=== PATIENT | female | born 1940 | race Caucasian/White ===

== ENCOUNTER 2017-07-22 18:41 | Emergency (ER) | payer MEDICARE, BC ==
--- NOTE | 2017-07-22 19:05 | EDM.PDOC ---
ED HPI GENERAL MEDICAL PROBLEM - General Chief Complaint: Upper Extremity Injury/Pain Stated Complaint: POSS SHOULDER INJURY Time Seen by Provider: 07/22/17 18:55 Source of Information: Reports: Patient History Limitations: Reports: No Limitations - History of Present Illness INITIAL COMMENTS - FREE TEXT/NARRATIVE: 76-year-old female presents the ED with severe constant pain radiating in her right neck rating down her right arm to her fingers. She reports the right upper extremity has numbness tingling biting and burning pain sensation. Shortness reports the arm seems to be weak and doesn't obey her commands. Of note she is right-hand dominant. Pain started on Friday 4 days ago and is gradually intensified. Patient has had previous rotator cuff surgery on her right shoulder with minimal improvement in symptoms according to the patient. She is sleeping in the easy chair due to the severity of the pain. Certain movements of her head and neck make the pain worse. Pain is bad enough to disrupt her sleep. She can no longer sleep on her right side she is sleeping in the easy chair. No recent falls or injuries to her head or neck. She is scheduled for MRI of her shoulder and neck she believes on Friday this week. Onset: Gradual Onset Date: 07/19/17 Duration: Day(s):, Constant, Getting Worse Location: Reports: Neck, Upper Extremity, Right Quality: Reports: Ache, Burning, Other (Paresthesias numbness tingling) Severity: Severe (and associated weakness due to pain) Improves with: Reports: None Worsens with: Reports: None Context: Denies: Activity, Exercise, Lifting, Sick Contact, Trauma, Other Associated Symptoms: Reports: Other (Cervical neck pain right shoulder pain). 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 Right Arm Pain Score (Numeric/FACES): 10 - Related Data Allergies Allergy/AdvReac Type Severity Reaction Status Date / Time No Known Allergies Allergy Verified 07/22/17 18:54 Home Meds: Home Meds Aspirin 81 mg PO DAILY 07/22/17 [History] Clopidogrel [Plavix] 75 mg PO DAILY 07/22/17 [History] Doxazosin [Doxazosin Mesylate] 2 mg PO DAILY 07/22/17 [History] Furosemide [Lasix] 40 mg PO DAILY 07/22/17 [History] Gabapentin [Neurontin] 200 mg PO BEDTIME 07/22/17 [History] Spironolactone [Aldactone] 25 mg PO DAILY 07/22/17 [History] atorvaSTATin [Lipitor] 40 mg PO BEDTIME 07/22/17 [History] metFORMIN HCl [Metformin HCl] 500 mg PO BID 07/22/17 [History] oxyCODONE HCl/Acetaminophen [Percocet 5-325 mg Tablet] 1 - 2 each PO Q4H PRN # 20 tablet 07/22/17 [Rx] predniSONE [Deltasone] 20 mg PO ASDIRECTED #15 tablet 07/22/17 [Rx] Past Medical History Cardiovascular History: Reports: Hypertension, Stents (On Plavix at this time) Genitourinary History: Reports: Diabetic Nephropathy Musculoskeletal History: Reports: Arthritis (Previous rotator cuff repair), Osteoarthritis, Other (See Below) Endocrine/Metabolic History: Reports: Diabetes, Type II (Controlled with diet, oral medications and insulin usually 10 units of regular insulin before each meal and 20 units of Lantus daily.), Obesity/BMI 30+ Social & Family History - Living Situation & Occupation Living situation: Reports: Occupation: Retired Review of Systems - Review of Systems Review Of Systems: See Below Constitutional: Reports: Weakness Eyes: Reports: No Symptoms (Right upper extremity) Ears: Reports: No Symptoms Nose: Reports: No Symptoms Mouth/Throat: Reports: No Symptoms Respiratory: Reports: No Symptoms Cardiovascular: Reports: No Symptoms GI/Abdominal: Reports: Decreased Appetite Genitourinary: Reports: Incontinence Musculoskeletal: Reports: Neck Pain, Shoulder Pain (He is hips and neck. Bilateral shoulder pain previous right rotator cuff repair surgery.), Back Pain (Urge and stress components. Urinary frequency.), Joint Pain Skin: Reports: Bruising (Bruises easily as she is on Plavix) Neurological: Reports: No Symptoms Psychiatric: Reports: No Symptoms ED EXAM, GENERAL - Physical Exam Exam: See Below Exam Limited By: No Limitations General Appearance: Alert, WD/WN, Mild Distress Eye Exam: Bilateral Eye: Normal Inspection Head: Atraumatic, Normocephalic Neck: Other (She has bilateral marked paraspinal muscle spasm. There is spasm throughout the trapezius muscles bilaterally as well. Traction is full but she has loss of 10 of extension and this makes the pain in her right arm worse. Axial traction did cause increased pain radiating to her right upper extremity particular her neck and along the distribution of the long thoracic nerve. This is on the right side.) Respiratory/Chest: No Respiratory Distress, Decreased Breath Sounds (Breath sounds are diminished in both lower lung isaacs lower 20%.) Cardiovascular: Normal Peripheral Pulses, Regular Rate, Rhythm, No Gallop, No Murmur, No Rub Peripheral Pulses: 1+: Posterior Tibial (L), Posterior Tibial (R), Dorsalis Pedis (L), Dorsalis Pedis (R) Back Exam: Normal Inspection, Full Range of Motion. No: CVA Tenderness (L), CVA Tenderness (R) Extremities: Other (Attempts to examine her right upper extremity were limited. She has very limited ability to forward flex or to abduct the shoulder due to weakness and pain. There is seems to be pain in the distribution of the deltoid tendon insertion site. Biceps tendon insertion site seemed to be okay. She could not resist abduction of the right arm when it was abducted at 45. This does suggest that she has underlying rotator cuff disease.) Neurological: Oriented, CN II-XII Intact, Normal Cognition, Normal Gait, Other ( She had no reflexes in the triceps biceps or brachioradialis in either extremity.) Psychiatric: Normal Mood Skin Exam: Warm, Dry, Intact, Normal Color, No Rash Course - Vital Signs Last Recorded V/S: Last Vital Signs Temp 36.7 C 07/22/17 18:48 Pulse 71 07/22/17 18:48 Resp 12 07/22/17 18:48 BP 204/73 H 07/22/17 18:48 Pulse Ox 99 07/22/17 18:48 - Radiology Interpretation Free Text/Narrative:: 76-year-old female presents the ED with cervical neck pain radiating to the right shoulder. She's had previous right rotator cuff surgery. Examination of the right approximate extremity difficult as she is very limited range of motion postoperatively. Clinically however extension of her neck exacerbates the pain suggesting a discogenic etiology to her right upper extremity pain. Axial traction produced increased pain in the right trapezius muscle and lung thoracic nerve distribution. She is very limited range of motion of her cervical spine with bilateral marked paraspinal muscle spasm. Because of her diabetes is limits our ability to treat her with anti-inflammatories. She's also on Plavix. Therefore she will be given prednisone 20 mg in the morning and bedtime for 5 days and then once in the morning only for another 5 days which will increase her blood sugars. She was advised of this and may need to increase her NovoLog with meals and perhaps even her Lantus insulin while on this medication. Percocet tabs 5/3 I believe clinically she has evidence of cervical nerve root irritation from a bad disc or degenerative arthritis. 25 milligrams one or 2 every 4-6 hours as needed for pain relief [address] Hebert had booked her for MRI I suspect of both her cervical spine and her right shoulder on Friday this week. Departure - Departure Time of Disposition: 19:07 Disposition: Home, Self-Care 01 Condition: Fair Clinical Impression: Cervical radiculopathy at C6 - Discharge Information Prescriptions: oxyCODONE HCl/Acetaminophen [Percocet 5-325 mg Tablet] 1 - 2 each PO Q4H PRN # 20 tablet PRN Reason: pain relief. predniSONE [Deltasone] 20 mg PO ASDIRECTED #15 tablet Instructions: Cervical Radiculopathy Referrals: Telma Lara MD [Primary Care Provider] - Forms: ED Department Discharge, ED Return to Work/School Form Additional Instructions: Evaluation the emergency room today in regards to cervical neck pain with 3 or referred pain into her right shoulder down her right arm. This is causing numbness tingling and weakness of the right upper extremity. Examination is difficult because of limited ability to abduct and forward flex the right shoulder due to previous rotator cuff surgery. However pain appears to be originating in the neck and likely represents a herniated disc compressing a nerve at C6- C7 level. Treatment today is pain. Deltasone 20 mg with breakfast and supper for the next 5 days and then once in the morning only for another 5 days again to try and reduce inflammation and pain. This medication will cause her blood sugars to elevate while you were on the medication you may have to take more NovoLog medication with meals while on it. He will return back to where was about 2 days after the medication is discontinued. The medicine is Percocet 5/3/25 milligram tablets one or 2 every 4-6 hours needed for pain relief. Suggest also using MiraLAX powder 17 g once daily to prevent constipation secondary to pain medication usage. Further investigations are warranted by imaging with MRI of your neck and her right shoulder to sort out exactly where this pain is coming from. Follow-up with her personal care physician after MRI suffering completed
== END 2017-07-22 19:27 | disposition home or self-care (01) ==
LOC: JD.ED 18:41
DX: M54.12 Radiculopathy, cervical region (principal); I10 Essential (primary) hypertension; E11.21 Type 2 diabetes mellitus with diabetic nephropathy; Z79.82 Long term (current) use of aspirin; Z79.899 Other long term (current) drug therapy; Z79.4 Long term (current) use of insulin; Z79.01 Long term (current) use of anticoagulants
CPT/HCPCS: 99283

== ENCOUNTER 2017-07-31 14:41 | Emergency (ER) | payer MEDICARE, BC ==
--- NOTE | 2017-07-31 15:39 | EDM.PDOC ---
ED HPI GENERAL MEDICAL PROBLEM - General Chief Complaint: Neurological Problem Stated Complaint: SENT BY DR. STEINER Time Seen by Provider: 07/31/17 15:07 Source of Information: Reports: Patient History Limitations: Reports: No Limitations - History of Present Illness INITIAL COMMENTS - FREE TEXT/NARRATIVE: Patient states she contacted her provider's office with instructions to come to the ED with concerns that she may be having a stroke. Patient is questioning why. She states the pain started 22 July after lifting heavy items while working. She was seen in the ED diagnosed with cervical radiculopathy and treated with steroids and also pain medications. She states the pain is almost completely gone. Has developed some slight numbness and tingling to the right arm and hand over the past few days. State the weakness is due to increasing pain with lifting. She has had a MRI of the neck and shoulder obtained. She does not have the results of these studies. Patient was not evaluated by PCP today. Patient called in questioning what else can be done with recent findings. She has appt scheduled with Dr. Khan at [facility] in August. She denies any slurred speech, difficulty swallowing, gait abnormalities, facial droop, history of CVA or TIA. No chest pain, sob, nausea/ vomiting, abdominal pain, dysuria, or any additional complaints. Patient is not sure why she is here. She does not believe she had a stroke. She thinks it all related to the right shoulder injury. - Related Data Allergies Allergy/AdvReac Type Severity Reaction Status Date / Time atenolol AdvReac Cannot Verified 07/31/17 15:00 Remember lisinopril AdvReac Cannot Verified 07/31/17 15:00 Remember Home Meds: Home Meds Aspirin 81 mg PO DAILY 07/22/17 [History] Clopidogrel [Plavix] 75 mg PO DAILY 07/22/17 [History] Doxazosin [Doxazosin Mesylate] 2 mg PO DAILY 07/22/17 [History] Furosemide [Lasix] 40 mg PO DAILY 07/22/17 [History] Gabapentin [Neurontin] 200 mg PO BEDTIME 07/22/17 [History] Spironolactone [Aldactone] 25 mg PO DAILY 07/22/17 [History] atorvaSTATin [Lipitor] 40 mg PO BEDTIME 07/22/17 [History] metFORMIN HCl [Metformin HCl] 500 mg PO BID 07/22/17 [History] oxyCODONE HCl/Acetaminophen [Percocet 5-325 mg Tablet] 1 - 2 each PO Q4H PRN # 20 tablet 07/22/17 [Rx] predniSONE [Deltasone] 20 mg PO ASDIRECTED #15 tablet 07/22/17 [Rx] Past Medical History HEENT History: Reports: Impaired Vision Cardiovascular History: Reports: Hypertension, Stents Genitourinary History: Reports: Diabetic Nephropathy 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: Musculoskeletal History: Reports: Arthritis, Osteoarthritis Endocrine/Metabolic History: Reports: Diabetes, Type II, Obesity/BMI 30+ - Past Surgical History Cardiovascular Surgical History: Reports: Coronary Artery Bypass Other Cardiovascular Surgeries/Procedures: triple bypass Social & Family History - Tobacco Use Smoking Status *Q: Never Smoker - Caffeine Use Caffeine Use: Reports: None - Recreational Drug Use Recreational Drug Use: No - Living Situation & Occupation Living situation: Reports: Occupation: Retired ED ROS GENERAL - Review of Systems Review Of Systems: ROS reveals no pertinent complaints other than HPI. ED EXAM, NEURO - Physical Exam Exam: See Below Exam Limited By: No Limitations General Appearance: Alert, WD/WN, No Apparent Distress Ears: Hearing Grossly Normal Nose: Normal Inspection Throat/Mouth: Normal Voice, No Airway Compromise Head Exam: Atraumatic, Normocephalic Neck: Normal Inspection, Supple Respiratory/Chest: No Respiratory Distress, Lungs Clear, Normal Breath Sounds, No Accessory Muscle Use, Chest Non-Tender Cardiovascular: Normal Peripheral Pulses, Regular Rate, Rhythm, No Murmur GI/Abdominal: Normal Bowel Sounds, Soft, Non-Tender, No Organomegaly, No Distention Neurological: Alert, Normal Mood/Affect, Normal Dorsiflexion, CN II-XII Intact, Normal Plantar Flexion, Normal Gait, No Motor/Sensory Deficits, Oriented x 3, Other (No facial droop, slurred speech, tongue deviation, and or pronator drift. Patiet has slight weakness to the right upper extremity 2nd to pain to the right lateral upper arm against resistance. Patient has full range of motion. No sensory deficits noted on examination. Cerebellar fx intact: finger to nose, rapid alternating movements, and heal to argueta.No weakness noted to the lowerextremities. ) Back Exam: Normal Inspection Extremities: Normal Inspection, Normal Range of Motion, No Pedal Edema, Normal Capillary Refill. No: Limited Range of Motion Psychiatric: Normal Affect, Normal Mood Skin Exam: Warm, Dry, Intact, Normal Color, No Rash Course - Vital Signs Last Recorded V/S: Last Vital Signs Temp 97.3 F 07/31/17 14:51 Pulse 66 07/31/17 14:51 Resp 16 07/31/17 14:51 BP 176/72 H 07/31/17 14:51 Pulse Ox 100 07/31/17 14:51 - Re-Assessments/Exams Free Text/Narrative Re-Assessment/Exam: * Reviewed MRI of the right shoulder and cervical spine. * Reviewed last E.D. visit. MRI right shoulder Technique: T2 gradient echo and proton fat-suppressed axial; T1, T2 and fat- suppressed inversion recovery coronal; T1 and T2 fat-suppressed oblique sagittal images through the right shoulder were obtained. Comparison: Prior right shoulder MRI of 06/02/12. Findings: Small joint effusion is seen as well as small amount of fluid within the subacromial bursa. Artifact from previous right shoulder surgery. Increased signal on the long TR sequence is seen within the greater tuberosity most likely postsurgical in etiology. Small area of increased signal is seen at the base of the superior labrum anteriorly which is not identified on prior study which may represent a minimal labral tear. Several minimal areas of increased signal are seen within the supraspinatus tendon which is felt compatible with several minimal areas of partial tear. Larger longitudinal tear within the distal supraspinatus tendon is not seen on current study as was noted previously. Normal location of the long head of the biceps tendon is seen. No full- thickness rotator cuff tear is seen. Impression: 1. Several minimal areas of partial tearing within the supraspinatus tendon but larger longitudinal split within the supraspinatus tendon seen previously is no longer present. 2. Small joint effusion and mild amount of fluid within subdeltoid bursa. 3. No full-thickness rotator cuff tear is seen. 4. Artifact from previous right shoulder surgery. 5. Questionable small labral tear within the anterior aspect of the superior labrum. MRI cervical spine: T2 gradient echo axial images were obtained from above the C2-C3 disc inferiorly through the C7-T1 disc. T1 and T2-weighted sagittal images were obtained. Comparison: Prior cervical spine x-ray of 05/22/12. Findings: C2-C3: Unusual soft tissue material seen posterior to the disc and extending above and below the disc. This slightly indents the anterior thecal sac and may represent some extruded disc material but causes no central canal stenosis. Neural foramina are patent. C3-C4: Posterior disc is preserved. No central canal stenosis is seen. Mild right-sided neural foraminal stenosis is seen. Moderate left-sided neural foraminal stenosis is noted. C4-C5: Mild posterior disc bulge is seen. Spurring noted posteriorly off the apophyseal joint which causes fairly severe right-sided neural foraminal. Left neural foramen is moderately narrowed. Mild central canal stenosis is seen. C5-C6: Mild disc space narrowing noted. Mild diffuse posterior disc bulges are noted. Moderate bilateral neural foraminal stenosis is seen. C6-C7: Mild disc space narrowing noted. Diffuse posterior disc bulge is seen. Moderate bilateral neural foraminal stenosis is seen. Central canal is minimally narrowed. C7-T1: Posterior disc is maintained. No central canal stenosis or neural foraminal stenosis is seen. T1-T2 through T3-T4: Posterior discs are maintained. No central canal stenosis or neural foraminal stenosis is seen. Cervical cord shows no abnormal signal or mass. Impression: 1. Degenerative change as noted above with multiple levels of neural foraminal stenosis. Mild central canal stenosis is noted at two levels. Equivocal disc material posterior to C3. Diagnostic code #3 * No labs and or further imaging required. Pain to the right arm present since the july. MRI of the right shoulder revealed small tears to the supraspinatus tendon and small labral tear. With examination patient has no sensory deficits. Weakness related to pain with strength testing of the right shoulder when pain increases causing her to stop. Weakness is isolated to the right upper extremity 2nd to pain. Fine motor is intact with no concerning findings in comparison to the left. Patient has no history of stroke and refuses to obtain CT of the head. She will followup with PCP and as scheduled. Patient to be discharged home with instructions as documented. Departure - Departure Time of Disposition: 15:56 Disposition: Home, Self-Care 01 Condition: Good Clinical Impression: Supraspinatus tendon tear Qualifiers: Encounter type: initial encounter Laterality: right Qualified Code(s): S46.811A - Strain of other muscles, fascia and tendons at shoulder and upper arm level, right arm, initial encounter Labral tear of shoulder Qualifiers: Encounter type: initial encounter Laterality: right Qualified Code(s): S43.431A - Superior glenoid labrum lesion of right shoulder, initial encounter Shoulder pain, right Qualifiers: Chronicity: acute Qualified Code(s): M25.511 - Pain in right shoulder - Discharge Information Instructions: Shoulder Pain, Shoulder Range of Motion Exercises Referrals: Telma Steiner MD [Primary Care Provider] - Forms: ED Department Discharge Additional Instructions: Keep appointment with Dr. Khan as scheduled. Refrain from any activities that cause worsening pain. May utilize Aleve one tab twice a day for discomfort. May utilize Tylenol 650 mg every 4-6 hours as needed for discomfort as well. Apply ice to affected area as needed. Do not apply directly on the skin. Follow- up with your primary care provider this coming week for reevaluation as needed as well. Return to the E.D. if you develop any new or worsening symptoms.
== END 2017-07-31 16:05 | disposition home or self-care (01) ==
LOC: JD.ED 14:41
DX: S46.811A Strain of other muscles, fascia and tendons at shoulder and upper arm level, right arm, initial encounter (principal); S43.431A Superior glenoid labrum lesion of right shoulder, initial encounter; I10 Essential (primary) hypertension; E11.21 Type 2 diabetes mellitus with diabetic nephropathy; M19.90 Unspecified osteoarthritis, unspecified site; Z79.82 Long term (current) use of aspirin; Z79.84 Long term (current) use of oral hypoglycemic drugs; Z79.899 Other long term (current) drug therapy; Z88.8 Allergy status to other drugs, medicaments and biological substances; X50.0XXA Overexertion from strenuous movement or load, initial encounter; Y99.0 Civilian activity done for income or pay
CPT/HCPCS: 99283; 99284

== ENCOUNTER 2017-09-29 14:46 | Emergency (ER) | payer MEDICARE, BC ==
[2017-09-29] MEDS ORDERED: Sodium Chloride 0.9% 10 ML Syringe FLUSH PRN (15:21)
--- NOTE | 2017-09-29 16:52 | EDM.PDOC ---
ED HPI GENERAL MEDICAL PROBLEM - General Chief Complaint: General Stated Complaint: HIGH BP/NOT FEELING WELL Time Seen by Provider: 09/29/17 15:07 Source of Information: Reports: Patient, RN Notes Reviewed - History of Present Illness INITIAL COMMENTS - FREE TEXT/NARRATIVE: 77-year-old lady has not been feeling well for the past week or so. She states she was on Medrol Dosepak for some type of upper extremity injury that was started about 12 days ago, just finished a few days ago. She also had been taken some type of muscle relaxant medication as well. Then she had cataract surgery about 5 days ago which apparently went well. She states she was at physical therapy this afternoon when she got real weak, dizzy lightheaded" broke out in a sweat". That point she decided she better be checked out here in the emergency department. No acute chest discomfort at this time but she has felt achy. She has been mildly short of breath. No fever or chills. She's not been coughing. Chest Pain Score (Numeric/FACES): 5 - Related Data Allergies Allergy/AdvReac Type Severity Reaction Status Date / Time atenolol AdvReac Cannot Verified 07/31/17 15:00 Remember lisinopril AdvReac Cannot Verified 07/31/17 15:00 Remember Home Meds: Home Meds Acetaminophen [Tylenol Arthritis Pain] 650 mg PO BID 09/29/17 [History] Albuterol [Proventil HFA] 2 puff INH Q4H PRN 09/29/17 [History] Aspirin [Ecotrin] 1 tab PO DAILY 09/29/17 [History] Baclofen 1 tab PO TID 09/29/17 [History] Clopidogrel [Plavix] 75 mg PO DAILY 09/29/17 [History] Diclofenac Sodium [Voltaren] 2 gm TP DAILY PRN 09/29/17 [History] Doxazosin [Doxazosin Mesylate] 2 mg PO DAILY 09/29/17 [History] Furosemide 40 mg PO DAILY 09/29/17 [History] Gabapentin [Neurontin] 2 cap PO BEDTIME 09/29/17 [History] Ibuprofen 200 mg PO Q4HR PRN 09/29/17 [History] Insulin Aspart [Novolog Flexpen] 22 units SQ TIDAC 09/29/17 [History] Losartan [Cozaar] 50 mg PO DAILY 09/29/17 [History] Menthol [Icy Hot No Mess] 73 ml TP DAILY PRN 09/29/17 [History] Menthol [Icy Hot Pain Relieving] 70.8 gm TP DAILY PRN 09/29/17 [History] Nitroglycerin [Nitrostat] 1 tab SL DAILY PRN 09/29/17 [History] [id number] [Cataract Opthalmic Solution] 1 drop OP TID 09/29/17 [History] Spironolactone [Aldactone] 50 mg PO TID 09/29/17 [History] atorvaSTATin [Lipitor] 40 mg PO BEDTIME 09/29/17 [History] metFORMIN [Glucophage XR] 500 mg PO DAILY 09/29/17 [History] methylPREDNISolone [Methylprednisolone] 1 tab PO DAILY 09/29/17 [History] Past Medical History HEENT History: Reports: Cataract, Impaired Vision Cardiovascular History: Reports: Hypertension, Stents Genitourinary History: Reports: Diabetic Nephropathy 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: Musculoskeletal History: Reports: Arthritis, Osteoarthritis Endocrine/Metabolic History: Reports: Diabetes, Type II, Obesity/BMI 30+ - Past Surgical History HEENT Surgical History: Reports: Cataract Surgery Cardiovascular Surgical History: Reports: Coronary Artery Bypass Other Cardiovascular Surgeries/Procedures: triple bypass Social & Family History - Tobacco Use Smoking Status *Q: Never Smoker - Caffeine Use Caffeine Use: Reports: Coffee - Recreational Drug Use Recreational Drug Use: No - Living Situation & Occupation Living situation: Reports: Occupation: Retired ED ROS GENERAL - Review of Systems Review Of Systems: See Below Constitutional: Reports: Diaphoresis. Denies: Fever, Chills HEENT: Denies: Sinus Problem, Throat Pain (Gone) Respiratory: Reports: Shortness of Breath. Denies: Wheezing, Cough Cardiovascular: Reports: Chest Pain (Occasional achiness) GI/Abdominal: Reports: Decreased Appetite. Denies: Abdominal Pain, Nausea, Vomiting Musculoskeletal: Denies: Shoulder Pain, Leg Pain Neurological: Reports: Dizziness. Denies: Headache, Numbness, Tingling, Trouble Speaking ED EXAM, GENERAL - Physical Exam Exam: See Below General Appearance: Alert, No Apparent Distress Eye Exam: Bilateral Eye: PERRL Throat/Mouth: Normal Inspection, Normal Oropharynx Head: Atraumatic Neck: Supple, Full Range of Motion. No: Lymphadenopathy (L), Lymphadenopathy (R ) Respiratory/Chest: No Respiratory Distress, Lungs Clear, Normal Breath Sounds Cardiovascular: Regular Rate, Rhythm GI/Abdominal: Soft, Non-Tender Back Exam: No: CVA Tenderness (L), CVA Tenderness (R) Extremities: Normal Inspection, Normal Range of Motion. No: Pedal Edema, Leg Pain Neurological: Alert, Oriented, No Motor/Sensory Deficits Skin Exam: Warm, Dry, Normal Color EKG INTERPRETATION EKG Date: 09/29/17 Rhythm: NSR [place]: Normal P-Wave: Present QRS: Other (Q waves present lead 3) ST-T: Other (T-wave inversion aVL) Course - Vital Signs Last Recorded V/S: Last Vital Signs Temp 97.0 F 09/29/17 14:55 Pulse 65 09/29/17 14:55 Resp 15 09/29/17 14:55 BP 179/59 H 09/29/17 14:55 Pulse Ox 100 09/29/17 14:55 - Orders/Labs/Meds Orders: Active Orders 24 hr Category Date Time Status EKG 12 Lead [EKG Documentation Completion] [RC] STAT Care 09/29/17 15:21 Active Peripheral IV Care [RC] . DIRECTED Care 09/29/17 15:21 Active Sodium Chloride 0.9% [Saline Flush] Med 09/29/17 15:21 Active 10 ml FLUSH ASDIRECTED PRN Peripheral IV Insertion Adult [OM.PC] Stat Oth 09/29/17 15:21 Ordered Medication Orders Sodium Chloride (Saline Flush) 10 ml FLUSH ASDIRECTED PRN PRN Reason: Keep Vein Open Labs: Laboratory Tests 09/29/17 09/29/17 Range/Units 15:55 15:55 WBC 12.75 H (3.98-10.04) K/mm3 RBC 3.51 L (3.98-5.22) M/mm3 Hgb 10.3 L (11.2-15.7) gm/L Hct 32.3 L (34.1-44.9) % MCV 92.0 (79.4-94.8) fl MCH 29.3 (25.6-32.2) pg MCHC 31.9 L (32.2-35.5) g/dl RDW Std Deviation 45.7 (36.4-46.3) fL Plt Count 172 L (182-369) K/mm3 MPV 10.4 (9.4-12.3) fl Neut % (Auto) 75.0 H (34.0-71.1) % Lymph % (Auto) 12.7 L (19.3-51.7) % [place] % (Auto) 10.0 (4.7-12.5) % Eos % (Auto) 2.0 (0.7-5.8) Baso % (Auto) 0.1 (0.1-1.2) % Neut # (Auto) 9.56 H (1.56-6.13) K/mm3 Lymph # (Auto) 1.62 (1.18-3.74) K/mm3 [place] # (Auto) 1.28 H (0.24-0.36) K/mm3 Eos # (Auto) 0.25 (0.04-0.36) K/mm3 Baso # (Auto) 0.01 (0.01-0.08) K/mm3 Sodium 144 (136-145) mEq/L Potassium 4.8 (3.5-5.1) mEq/L Chloride 107 (98-107) mEq/L Carbon Dioxide 24 (21-32) mEq/L Anion Gap 17.8 H (5-15) BUN 41 H (7-18) mg/dL Creatinine 1.3 H (0.55-1.02) mg/dL Est Cr Clr Drug Dosing 31.79 mL/min Estimated GFR (MDRD) 40 (>60) mL/min BUN/Creatinine Ratio 31.5 H (14-18) Glucose 156 H (83-115) mg/dL Calcium 8.5 (8.5-10.1) mg/dL Total Bilirubin 0.3 (0.2-1.0) mg/dL AST 19 (15-37) U/L ALT 28 (14-59) U/L Alkaline Phosphatase 126 H (46-116) U/L Troponin I < 0.017 (0.00-0.056) ng/mL Total Protein 6.9 (6.4-8.2) g/dl Albumin 3.7 (3.4-5.0) g/dl Globulin 3.2 gm/dL Albumin/Globulin Ratio 1.2 (1-2) Meds: Medications Generic Name Dose Route Start Last Admin Trade Name Freq PRN Reason Stop Dose Admin Sodium Chloride 10 ml 09/29/17 15:21 Saline Flush FLUSH ASDIRECTED PRN Keep Vein Open Departure - Departure Time of Disposition: 17:06 Disposition: Home, Self-Care 01 Condition: Fair Clinical Impression: Dizziness, Atypical chest pain - Discharge Information Referrals: Telma Lara MD [Primary Care Provider] - Forms: ED Department Discharge Additional Instructions: Your lab work showed that you were mildly dehydrated today. Drink plenty of water to maintain hydration, continue current medications as prescribed, continue physical therapy as needed. Try to increase activity slowly as tolerated as discussed. Follow-up with your regular medical provider if not much better within 5-7 days as expected. Return to ED as needed if symptoms worsening in any way. - My Orders Last 24 Hours: My Active Orders 09/29/17 15:21 EKG 12 Lead [EKG Documentation Completion] [RC] STAT Peripheral IV Care [RC] . DIRECTED Sodium Chloride 0.9% [Saline Flush] 10 ml FLUSH ASDIRECTED PRN Peripheral IV Insertion Adult [OM.PC] Stat - Assessment/Plan Last 24 Hours: My Active Orders 09/29/17 15:21 EKG 12 Lead [EKG Documentation Completion] [RC] STAT Peripheral IV Care [RC] . DIRECTED Sodium Chloride 0.9% [Saline Flush] 10 ml FLUSH ASDIRECTED PRN Peripheral IV Insertion Adult [OM.PC] Stat
== END 2017-09-29 17:20 | disposition home or self-care (01) ==
LOC: JD.ED 14:46
DX: R07.89 Other chest pain (principal); R42 Dizziness and giddiness; I10 Essential (primary) hypertension; E11.21 Type 2 diabetes mellitus with diabetic nephropathy; Z79.82 Long term (current) use of aspirin; Z79.84 Long term (current) use of oral hypoglycemic drugs; Z79.899 Other long term (current) drug therapy; Z88.8 Allergy status to other drugs, medicaments and biological substances
CPT/HCPCS: 36415; 80053; 84484; 85025; 93005; 93010; 99284-25

== ENCOUNTER 2019-05-20 09:27 | Emergency (ER) | payer OTHER, MEDICARE ==
--- NOTE | 2019-05-20 10:02 | EDM.PDOC ---
ED HPI GENERAL MEDICAL PROBLEM - General Chief Complaint: Back Pain or Injury Stated Complaint: HEAD AND BACK INJURY Time Seen by Provider: 05/20/19 10:02 - History of Present Illness INITIAL COMMENTS - FREE TEXT/NARRATIVE: 78-year-old female presents to the emergency room after falling. Earlier this morning the patient fell on the slippery ice getting out of her SUV. She fell backwards hitting her back on the running board and then hitting her head on the ground. She hit the back of her head. She looked denies loss of consciousness however is feeling foggy and just does not feel well. Patient has significant mid back pain. Patient denies any extremity pain. She has had no loss of bowel or bladder control. She denies abdominal pain.. She is not on blood thinners. Back Pain Score (Numeric/FACES): 6 - Related Data Allergies Allergy/AdvReac Type Severity Reaction Status Date / Time atenolol AdvReac Cannot Verified 05/20/19 09:45 Remember lisinopril AdvReac Cannot Verified 05/20/19 09:45 Remember Home Meds: Home Meds Aspirin [Ecotrin] 1 tab PO DAILY 09/29/17 [History] Doxazosin [Doxazosin Mesylate] 4 mg PO DAILY 09/29/17 [History] Furosemide 40 mg PO DAILY 09/29/17 [History] Gabapentin [Neurontin] 200 mg PO BEDTIME 09/29/17 [History] Insulin Aspart [Novolog Flexpen] 22 units SQ TIDAC 09/29/17 [History] Losartan [Cozaar] 100 mg PO DAILY 09/29/17 [History] Spironolactone [Aldactone] 50 mg PO TID 09/29/17 [History] Insulin Glargine,Hum.Rec.Anlog [Basaglar Kwikpen U-100] 22 units SQ BEDTIME 04/08 [History] amLODIPine [Norvasc] 10 mg PO DAILY 05/20/19 [History] atorvaSTATin [Lipitor] 40 mg PO DAILY 05/20/19 [History] Past Medical History HEENT History: Reports: Cataract, Impaired Vision Cardiovascular History: Reports: Hypertension, Stents Genitourinary History: Reports: Diabetic Nephropathy 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: Musculoskeletal History: Reports: Arthritis, Osteoarthritis Endocrine/Metabolic History: Reports: Diabetes, Type II, Obesity/BMI 30+ - Past Surgical History HEENT Surgical History: Reports: Cataract Surgery Cardiovascular Surgical History: Reports: Coronary Artery Bypass Other Cardiovascular Surgeries/Procedures: triple bypass Musculoskeletal Surgical History: Reports: Other (See Below) Other Musculoskeletal Surgeries/Procedures:: rotator cuff surgery Social & Family History - Tobacco Use Smoking Status *Q: Never Smoker - Caffeine Use Caffeine Use: Reports: Coffee - Recreational Drug Use Recreational Drug Use: No - Living Situation & Occupation Living situation: Reports: Occupation: Retired ED ROS GENERAL - Review of Systems Review Of Systems: See Below Constitutional: Reports: No Symptoms. Denies: Fever, Chills HEENT: Reports: No Symptoms Respiratory: Reports: No Symptoms Cardiovascular: Reports: Chest Pain (He has some rib type pain in her lower posterior ribs) Endocrine: Reports: No Symptoms GI/Abdominal: Reports: No Symptoms Neurological: Reports: Headache, Other (Patient states she feels dazed) Psychiatric: Reports: No Symptoms Hematologic/Lymphatic: Reports: No Symptoms Immunologic: Reports: No Symptoms ED EXAM, GENERAL - Physical Exam Exam: See Below Exam Limited By: Other (Patient has difficulty moving around because of her back pain but with assistance we were able to get the exam done without difficulty the patient was ambulatory and walked to the exam room.) General Appearance: Alert, No Apparent Distress Eye Exam: Bilateral Eye: Normal Inspection, PERRL Ears: Normal External Exam, Normal Canal, Hearing Grossly Normal, Normal TMs Nose: Normal Inspection, Normal Mucosa, No Blood Throat/Mouth: Normal Inspection, Normal Lips, Normal Teeth, Normal Gums, Normal Oropharynx, Normal Voice, No Airway Compromise Head: Other (She has some tenderness in the occipital region) Neck: Other (Vague discomfort in the lower cervical upper thoracic region) Respiratory/Chest: No Respiratory Distress, Lungs Clear, Normal Breath Sounds, Other (Affable tenderness in the ribs in the lower posterior aspect of the chest ) Cardiovascular: Regular Rate, Rhythm, No Edema, Systolic Murmur (Is a 3/6 holosystolic murmur heard best in the left upper sternal border and the right upper sternal border) GI/Abdominal: Normal Bowel Sounds, Soft, Non-Tender Back Exam: Vertebral Tenderness (She has discomfort in the lower thoracic region midline no step-off deformity noted she has a mild abrasion here) Extremities: Normal Inspection, Normal Range of Motion, Non-Tender Course - Vital Signs Last Recorded V/S: Last Vital Signs Temp 36.7 C 05/20/19 09:41 Pulse 68 05/20/19 09:41 Resp 16 05/20/19 09:41 BP 178/62 H 05/20/19 09:41 Pulse Ox 100 05/20/19 09:41 - Re-Assessments/Exams Free Text/Narrative Re-Assessment/Exam: 05/20/19 12:46 Evaluation of her head C-spine chest and thoracic spine was negative for acute fracture dislocation or any other acute changes she is got degenerative changes noted in the spinous structures. The patient has done well here in the emergency department I recommended that she take it easy today filled out her paperwork to return to work with no restrictions tomorrow she does not do any heavy lifting and she has a fair amount of control over what she does not does not do I told her to take it easy and limit screen time and make sure she gets plenty of rest she thinks she can do this. Departure - Departure Time of Disposition: 12:48 Disposition: Home, Self-Care 01 Clinical Impression: Head injury, Contusion of ribs, Contusion of upper back - Discharge Information Referrals: Telma Lara MD [Primary Care Provider] - Forms: ED Department Discharge Additional Instructions: Return to the emergency room with any questions problems or worsening symptoms. Tylenol as needed for discomfort. Minimize your screen time, and other words, looking into computers cell phones or televisions. You may return to work tomorrow just do not overdo it no heavy lifting and it does not sound like your work responsibilities require this. Follow-up with your regular physician in 1 week Sepsis Event Note - Evaluation Sepsis Screening Result: No Definite Risk - Focused Exam Vital Signs: Vital Signs Temp Pulse Resp BP Pulse Ox 05/20/19 09:41 36.7 C 68 16 178/62 H 100 Date Exam was Performed: 05/20/19 Time Exam was Performed: 12:46
--- NOTE | 2019-05-20 11:35 | CT ---
CT cervical spine Technique: Multiple axial sections were obtained from above C1 inferiorly to the top of T2. Reconstructed sagittal and coronal images were reviewed. Comparison: Prior cervical spine MRI of 07/25/17. Findings: Diffuse degenerative apophyseal change is seen scattered throughout the spine. Detached bony densities are noted off the spinous process of C6 and C7 compatible with old injury. Bridging posterior osteophyte noted at C2-C3. Degenerative change is noted between the dens and anterior arch of C1. Minimal spondylolisthesis is noted at C4-C5 and C5-C6 as well as C6-C7. Vacuum disc phenomenon is noted within the disks at C4-C5 and C6-C7. Mild scattered anterior endplate osteophytes are seen. Moderate left-sided neural foraminal stenosis is noted at C3-C4. Severe bilateral neural foraminal stenosis is noted at C4-C5. No other significant neural foraminal stenosis is seen. No central canal stenosis is appreciated. No acute fracture is appreciated. Impression: 1. Diffuse degenerative change. 2. No acute fracture is appreciated. Diagnostic code #2 Study was dictated in MDT
--- NOTE | 2019-05-20 11:35 | CT ---
CT chest Technique: Multiple axial sections were obtained through the chest. Intravenous contrast was not utilized. Findings: Coronary artery calcification is noted. Aorta shows atherosclerotic calcification. No aneurysm is seen. Prior sternotomy noted with CABG. No pericardial thickening is seen. Mediastinum shows no adenopathy or mediastinal hematoma. Lungs are clear with no acute parenchymal change. No pulmonary contusion is seen. No pleural effusions or pneumothorax is seen. Bone window settings were reviewed. No discrete rib fracture is appreciated. Reconstructed sagittal images of the sternum show nothing acute. Scattered degenerative spurring within the spine is seen. Impression: 1. Findings as noted above. Nothing acute is appreciated on noncontrast CT study of the chest. Diagnostic code #2 Study was dictated in MDT
--- NOTE | 2019-05-20 11:35 | CT ---
CT thoracic spine Technique: Multiple axial sections through the thoracic spine were obtained. Reconstructed coronal and sagittal images were obtained. Comparison: No prior thoracic spine imaging is available. Findings: Vertebral body heights are maintained. Mild scattered disc space narrowing with scattered endplate osteophytes being seen anterior and laterally. No fracture is appreciated. No abnormal subluxation is seen. No bony central or bony neural foraminal stenosis is seen. Posterior spurring is noted at the T12-L1 level which indents the anterior thecal sac but causes no central canal stenosis. Impression: 1. Degenerative change. 2. No acute fracture or abnormal subluxation is seen. Diagnostic code #2 Study was dictated in MDT
--- NOTE | 2019-05-20 11:35 | CT ---
Head CT Technique: Multiple axial sections through the brain were obtained. Intravenous contrast was not utilized. Comparison: No prior intracranial imaging is available. Findings: Ventricles along with basal cisterns and sulci over the convexities are mildly prominent. Minimal areas of diminished density is noted within the periventricular white matter compatible with small vessel ischemic demyelination change. No other abnormal parenchymal densities are seen. No evidence of intracranial hemorrhage. No midline shift or mass effect is seen. Mild basal ganglia calcification is seen. Calcification is noted within the carotid siphon and within the vertebral vessels. Bone window settings were reviewed. Visualized mastoid sinuses and visualized paranasal sinuses showed nothing acute. No acute calvarial abnormality is appreciated. Impression: 1. Senescent change as noted above. 2. Nothing acute is appreciated on CT study of the brain. Diagnostic code #2 Study was dictated in MDT
== END 2019-05-20 13:00 | disposition home or self-care (01) ==
LOC: JD.ED 09:27
DX: S09.90XA Unspecified injury of head, initial encounter (principal); S20.219A Contusion of unspecified front wall of thorax, initial encounter; S20.222A Contusion of left back wall of thorax, initial encounter; S20.221A Contusion of right back wall of thorax, initial encounter; E11.9 Type 2 diabetes mellitus without complications; I10 Essential (primary) hypertension; Z88.8 Allergy status to other drugs, medicaments and biological substances; Z79.899 Other long term (current) drug therapy; Z79.4 Long term (current) use of insulin
CPT/HCPCS: 70450; 70450-26; 71250; 71250-26; 72125; 72125-26; 72128; 72128-26; 99283; 99285-25

== ENCOUNTER 2023-05-28 13:53 | Emergency (ER) | payer MEDICARE, OTHER | END 2023-05-28 17:15 | disposition home or self-care (01) | LOC: JD.ED 13:53 | DX: M76.891 Other specified enthesopathies of right lower limb, excluding foot (principal); I10 Essential (primary) hypertension; E11.21 Type 2 diabetes mellitus with diabetic nephropathy; Z95.1 Presence of aortocoronary bypass graft; Z88.8 Allergy status to other drugs, medicaments and biological substances; Z95.5 Presence of coronary angioplasty implant and graft; Z79.4 Long term (current) use of insulin; Z79.82 Long term (current) use of aspirin; Z79.899 Other long term (current) drug therapy | CPT/HCPCS: 73502-26-RT; 73502-RT; 73700-26-RT; 73700-RT; 99284 ==

== ENCOUNTER 2024-01-29 16:52 | Emergency (ER) | payer OTHER, MEDICARE ==
[2024-01-29] MEDS ORDERED: Sodium Chloride 0.9% 10 ML Syringe FLUSH PRN (17:19)
[2024-01-29 17:59] LABS: BASOPHILS PERCENT AUTO 0.4 % (0.0-1.0); EOSINOPHILS ABSOLUTE AUTO 0.2 K/mm3 (0.0-0.4); EOSINOPHILS PERCENT AUTO 1.6 % (0.0-6.0); HEMATOCRIT 32.1 % (37.0-47.0); HEMOGLOBIN 11.3 gm/dl (12.0-16.0); IMMATURE GRAN ABSOLUTE AUTO 0.03 K/mm3 (0.00-0.05); IMMATURE GRAN PERCENT AUTO 0.3 % (0.0-0.4); LYMPHOCYTES ABSOLUTE AUTO 2.4 K/mm3 (1.0-4.8); MEAN CORPUSCULAR HEMOGLOBIN 30.3 pg (28.0-32.0); MEAN CORPUSCULAR HGB CONC 35.2 g/dl (32.0-36.0); MEAN CORPUSCULAR VOLUME 86.1 fl (83.0-99.0); MEAN PLATELET VOLUME 10.3 fl (9.4-12.3); MONOCYTES ABSOLUTE AUTO 0.9 K/mm3 (0.0-0.8); MONOCYTES PERCENT AUTO 9.3 % (0.0-8.0); NEUTROPHILS ABSOLUTE AUTO 6.1 K/mm3 (1.8-7.7); NEUTROPHILS PERCENT AUTO 63.4 % (41.0-71.0); PLATELET COUNT,PLT 269 K/mm3 (150-400); RED BLOOD CELL COUNT 3.73 M/mm3 (4.10-5.30); WHITE BLOOD CELL COUNT,WBC 9.63 K/mm3 (3.9-11.3)
[2024-01-29 18:11] LABS: APPEARANCE,URINE CLEAR (Clear); BILIRUBIN,URINE NEGATIVE (Negative); COLOR,URINE YELLOW (Yellow); GLUCOSE,URINE NEGATIVE (Negative); KETONES,URINE NEGATIVE (Negative); LEUKOCYTE ESTERASE,URINE 2+ (Negative); NITRITE,URINE NEGATIVE (Negative); OCCULT BLOOD,URINE NEGATIVE (Negative); PH,URINE 6.5 (5.0-8.0); PROTEIN,URINE NEGATIVE (Negative); UROBILINOGEN,URINE 0.2 (0.2-1.0)
[2024-01-29] MEDS: Sodium Chloride 0.9% 500 ML IV ONE (18:20)
[2024-01-29] MEDS: Iopamidol 612 MG/ML 30 ML SDV IVPUSH ONE (18:21)
[2024-01-29] MEDS: Iopamidol 612 MG/ML 100 ML Bottle IVPUSH ONE (18:21)
[2024-01-29] MEDS: Sodium Chloride 0.9% 10 ML Syringe FLUSH ONE (18:21)
[2024-01-29] MEDS: Acetaminophen 325 MG Tab PO ONE (18:26)
[2024-01-29 18:31] LABS: A/G RATIO 1.1 (1-2); ALANINE AMINOTRANSFERASE,ALT 23 U/L (14-59); ALBUMIN 4.2 g/dl (3.4-5.0); ALKALINE PHOSPHATASE 165 U/L (46-116); ANION GAP 19.5 (5-15); ASPARTATE AMNIOTRANSFERASE,AST 16 U/L (15-37); BILIRUBIN TOTAL 0.3 mg/dL (0.2-1.0); BLOOD UREA NITROGEN,BUN 68 mg/dL (7-18); BUN/CREATININE RATIO 37.8 (14-18); CALCIUM 9.4 mg/dL (8.5-10.1); CARBON DIOXIDE,CO2 22 mEq/L (21-32); CHLORIDE,CL 101 mEq/L (98-107); CREATININE 1.8 mg/dL (0.55-1.02); ESTIMATED GFR 28 mL/min (>60); GLUCOSE RANDOM 133 mg/dL (70-99); LIPASE 78 U/L (16-77); POTASSIUM,K 4.5 mEq/L (3.5-5.1); PROTEIN TOTAL,TP 8.2 g/dl (6.4-8.2); SODIUM,NA 138 mEq/L (136-145)
[2024-01-29 18:59] LABS: RBC,URINE 0-5 /hpf (0-5); WBC,URINE 20-30 /hpf (0-5)
[2024-01-29 19:00] LABS: BACTERIA,URINE MANY /hpf (FEW); MUCUS,URINE FEW /hpf (FEW); SQUAMOUS EPITHELIAL CELLS,UR 0-5 /hpf (0-5)
[2024-01-29] MEDS: cefTRIAXone 1 GM Vial IVPUSH ONE (19:52)
[2024-01-29] MEDS: cefTRIAXone 500 MG Vial IVPUSH ONE (19:59)
== END 2024-01-29 20:16 | disposition home or self-care (01) ==
LOC: JD.ED 16:52
DX: M54.50 Low back pain, unspecified (principal); M25.552 Pain in left hip; N39.0 Urinary tract infection, site not specified; E04.1 Nontoxic single thyroid nodule; R79.89 Other specified abnormal findings of blood chemistry; I10 Essential (primary) hypertension; E11.21 Type 2 diabetes mellitus with diabetic nephropathy; M19.90 Unspecified osteoarthritis, unspecified site; E66.9 Obesity, unspecified; Z86.16 Personal history of COVID-19; Z90.49 Acquired absence of other specified parts of digestive tract; Z96.659 Presence of unspecified artificial knee joint; Z88.8 Allergy status to other drugs, medicaments and biological substances; Z79.4 Long term (current) use of insulin; Z79.82 Long term (current) use of aspirin; Z79.899 Other long term (current) drug therapy; V89.2XXA Person injured in unspecified motor-vehicle accident, traffic, initial encounter
CPT/HCPCS: 36415; 70450; 71260; 72125; 73552; 74177; 80053; 81001; 82947; 83690; 85025; 87086; 87088; 87186; 96361; 96374; 99284; A9270; J0696; J7030; Q9967

== ENCOUNTER 2025-01-04 20:42 | Emergency (ER) | payer MEDICARE ==
[2025-01-04 21:13] LABS: BASOPHILS ABSOLUTE AUTO 0.0 K/mm3 (0.0-0.2); BASOPHILS PERCENT AUTO 0.1 % (0.0-1.0); EOSINOPHILS ABSOLUTE AUTO 0.1 K/mm3 (0.0-0.4); EOSINOPHILS PERCENT AUTO 0.9 % (0.0-6.0); IMMATURE GRAN ABSOLUTE AUTO 0.04 K/mm3 (0.00-0.05); IMMATURE GRAN PERCENT AUTO 0.3 % (0.0-0.4); LYMPHOCYTES ABSOLUTE AUTO 1.5 K/mm3 (1.0-4.8); LYMPHOCYTES PERCENT AUTO 12.7 % (24.0-44.0); MEAN PLATELET VOLUME 10.9 fl (9.4-12.3); MONOCYTES ABSOLUTE AUTO 1.2 K/mm3 (0.0-0.8); MONOCYTES PERCENT AUTO 9.9 % (0.0-8.0); NEUTROPHILS ABSOLUTE AUTO 9.0 K/mm3 (1.8-7.7); NEUTROPHILS PERCENT AUTO 76.1 % (41.0-71.0); NRBC ABSOLUTE 0.00 (0.00-0.02); NRBC PERCENT 0.0 % (0.0-0.2); PLATELET COUNT,PLT 273 K/mm3 (150-400); RED BLOOD CELL COUNT 3.51 M/mm3 (4.10-5.30); WHITE BLOOD CELL COUNT,WBC 11.76 K/mm3 (3.9-11.3)
[2025-01-04] MEDS: Furosemide 40 MG/4 ML VIAL IVPUSH ONE (21:13)
[2025-01-04 21:38] LABS: INR 1.07
[2025-01-04 21:44] LABS: A/G RATIO 0.9 (1-2); ALANINE AMINOTRANSFERASE,ALT 15.0 U/L (14-59); ASPARTATE AMNIOTRANSFERASE,AST 14.0 U/L (15-37); BILIRUBIN TOTAL 0.4 mg/dL (0.2-1.0); BLOOD UREA NITROGEN,BUN 83.0 mg/dL (7-18); CARBON DIOXIDE,CO2 23.0 mEq/L (21-32); CHLORIDE,CL 98.0 mEq/L (98-107); CREATININE 2.0 mg/dL (0.55-1.02); EST CRCL DRUG DOSING (CG) 18.4 mL/min; ESTIMATED GFR 24.0 mL/min (>60); GLUCOSE RANDOM 305.0 mg/dL (70-99); POTASSIUM,K 4.3 mEq/L (3.5-5.1); PROTEIN TOTAL,TP 7.4 g/dl (6.4-8.2); SODIUM,NA 134.0 mEq/L (136-145); TROPONIN I HIGH SENSITIVITY 7.0 pg/mL (<=51)
[2025-01-04] MEDS: Acetaminophen/HYDROcodone 325-5 MG Tab PO ONE (23:02)
[2025-01-04 23:11] LABS: APPEARANCE,URINE CLEAR (Clear); GLUCOSE,URINE NEGATIVE (Negative); OCCULT BLOOD,URINE NEGATIVE (Negative)
[2025-01-04 23:33] LABS: EPITHELIAL CELLS,URINE 0-5 /hpf (0-5)
== END 2025-01-05 00:30 | disposition home or self-care (01) ==
LOC: JD.ED 20:42
DX: I11.0 Hypertensive heart disease with heart failure (principal); I50.43 Acute on chronic combined systolic (congestive) and diastolic (congestive) heart failure; E11.65 Type 2 diabetes mellitus with hyperglycemia; E11.21 Type 2 diabetes mellitus with diabetic nephropathy; E66.9 Obesity, unspecified; Z95.1 Presence of aortocoronary bypass graft; F45.0 Somatization disorder; M79.604 Pain in right leg; M79.605 Pain in left leg; Z87.891 Personal history of nicotine dependence; Z86.16 Personal history of COVID-19; Z79.82 Long term (current) use of aspirin; Z79.899 Other long term (current) drug therapy; Z88.8 Allergy status to other drugs, medicaments and biological substances; Z68.30 Body mass index [BMI] 30.0-30.9, adult
CPT/HCPCS: 36415; 71045; 80053; 81001; 83735; 83880; 84484; 85025; 85610; 93005; 96374; 99285; A9270; J1938; 93010; 99284